=== PATIENT | male | born 1950 | race African-American/Black ===

== ENCOUNTER 2017-12-01 18:32 | Inpatient (IN) | payer OTHER ==
[2017-12-01] MEDS: ASPIRIN 81 MG TAB PO (19:25)
[2017-12-01] MEDS: NITROGLYCERIN 2% 1 GM OINT PKT TD (19:25)
[2017-12-01] MEDS: NITROGLYCERIN (SL) 0.4 MG TAB SL (19:25)
[2017-12-01] MEDS: ONDANSETRON 4 MG INJ IV (19:25)
[2017-12-01 19:26] LABS: ADD MAN DIFF? NO
[2017-12-01] MEDS: morphine 4 MG/ML VIAL IV ×2 (19:26→22:57)
[2017-12-01 19:27] LABS: BASOPHILS % 0.4 % (0.0-2.0); EOSINOPHILS % 0.8 % (0.0-7.0); HEMATOCRIT 38.4 % (42.0-52.0); HEMOGLOBIN 12.6 g/dl (14.0-18.0); LYMPHOCYTES # 0.6 10^3/ul (0.8-2.9); LYMPHOCYTES % 12.3 % (15.0-51.0); MEAN CORPUSCULAR HEMOGLOBIN 31.1 pg (29.0-33.0); MEAN CORPUSCULAR HGB CONC 32.8 g/dl (32.0-37.0); MEAN CORPUSCULAR VOLUME 94.8 fl (82.0-101.0); MEAN PLATELET VOLUME 11.2 fl (7.4-10.4); MONOCYTE # 0.4 10^3/ul (0.3-0.9); MONOCYTES % 6.7 % (0.0-11.0); NEUTROPHIL # 4.1 10^3/ul (1.6-7.5); NEUTROPHILS % 79.4 % (39.0-77.0); PLATELET COUNT 160 10^3/UL (140-415); RED BLOOD COUNT 4.05 10^6/ul (4.70-6.10); RED CELL DISTRIBUTION WIDTH 14.5 % (11.5-14.5)
[2017-12-01 19:27] LABS: WHITE BLOOD COUNT 5.2 10^3/ul (4.8-10.8)
[2017-12-01 19:51] LABS: ANION GAP 15 (8-16); BLOOD UREA NITROGEN 16 mg/dl (7-20); CARBON DIOXIDE 23 mmol/L (21-31); CHLORIDE 103 mmol/L (97-110); CREATININE 1.01 mg/dl (0.61-1.24); GLUCOSE 398 mg/dl (70-220); POTASSIUM 4.4 mmol/L (3.5-5.1); SODIUM 137 mmol/L (135-144)
[2017-12-01 20:03] LABS: TROPONIN-I 0.017 ng/ml (0.00-0.12)
[2017-12-01] MEDS: INSULIN LISPRO 100 UNIT/ML VIAL SC (20:36)
[2017-12-01] MEDS ORDERED: ACETAMINOPHEN 325 MG TAB PO (23:00)
[2017-12-01] MEDS ORDERED: NACL 0.9% 3 ML SYG IV (23:00)
[2017-12-01] MEDS ORDERED: DOCUSATE SODIUM 100 MG CAP PO (23:00)
[2017-12-01] MEDS: FAMOTIDINE 20 MG TAB PO (23:08)
[2017-12-01] MEDS ORDERED: DEXTROSE 50% 50 ML SYRINGE IV ×2 (23:15)
[2017-12-01] MEDS ORDERED: GLUCOSE GEL 15 GRAM TUBE PO ×2 (23:15)
[2017-12-01] MEDS ORDERED: GLUCOSE GEL 15 GRAM TUBE BUCCAL (23:15)
[2017-12-01] MEDS ORDERED: GLUCAGON 1 MG INJ IM (23:15)
[2017-12-01] MEDS: INSULIN GLARGINE [LANtus] 3 ML PEN SC (23:39)
[2017-12-02 02:01] LABS: CREATINE KINASE 164 IU/L (23-200)
[2017-12-02 02:15] LABS: CK INDEX 1.8
[2017-12-02 05:22] LABS: ADD MAN DIFF? NO
[2017-12-02 05:26] LABS: BASOPHILS % 0.4 % (0.0-2.0); EOSINOPHILS # 0.1 10^3/ul (0.0-0.5); EOSINOPHILS % 0.9 % (0.0-7.0); HEMATOCRIT 38.2 % (42.0-52.0); HEMOGLOBIN 12.3 g/dl (14.0-18.0); LYMPHOCYTES # 0.7 10^3/ul (0.8-2.9); LYMPHOCYTES % 13.4 % (15.0-51.0); MEAN CORPUSCULAR HGB CONC 32.2 g/dl (32.0-37.0); MEAN CORPUSCULAR VOLUME 96.2 fl (82.0-101.0); MEAN PLATELET VOLUME 11.6 fl (7.4-10.4); MONOCYTE # 0.4 10^3/ul (0.3-0.9); MONOCYTES % 7.5 % (0.0-11.0); NEUTROPHIL # 4.2 10^3/ul (1.6-7.5); NEUTROPHILS % 77.4 % (39.0-77.0); PLATELET COUNT 153 10^3/UL (140-415); RED BLOOD COUNT 3.97 10^6/ul (4.70-6.10); RED CELL DISTRIBUTION WIDTH 14.5 % (11.5-14.5)
[2017-12-02 05:26] LABS: WHITE BLOOD COUNT 5.5 10^3/ul (4.8-10.8)
[2017-12-02 06:18] LABS: ANION GAP 15 (8-16); BLOOD UREA NITROGEN 14 mg/dl (7-20); CALCIUM 8.9 mg/dl (8.4-10.2); CARBON DIOXIDE 25 mmol/L (21-31); CHLORIDE 104 mmol/L (97-110); CREATININE 0.91 mg/dl (0.61-1.24); GLUCOSE 286 mg/dl (70-220); POTASSIUM 4.7 mmol/L (3.5-5.1); SODIUM 139 mmol/L (135-144)
[2017-12-02 06:20] LABS: CREATINE KINASE 150 IU/L (23-200)
[2017-12-02 06:28] LABS: CK INDEX 1.7
[2017-12-02] MEDS: FAMOTIDINE 20 MG TAB PO ×2 (08:52→21:22)
[2017-12-02] MEDS: morphine 2 MG INJ IV (08:56)
[2017-12-02] MEDS: ENOXAPARIN 40 MG/0.4 ML SYG SC (09:03)
[2017-12-02 10:22] LABS: B-TYPE NATRIURETIC PEPTIDE 1800 PG/ML (0-125)
[2017-12-02] MEDS: INSULIN ASPART [NOVOLOG] 3 ML PEN SC ×2 (12:29→17:51)
[2017-12-02] MEDS ORDERED: FUROSEMIDE 20 MG INJ IV (17:04)
[2017-12-02] MEDS ORDERED: INSULIN ASPART [NOVOLOG] 3 ML PEN SC (17:05)
[2017-12-02] MEDS: traMADol 50 MG TAB PO (17:40)
[2017-12-02] MEDS: FUROSEMIDE 40 MG INJ IV (17:49)
[2017-12-02] MEDS: MYCOPHENOLATE 250 MG CAP PO ×2 (19:11→20:49)
[2017-12-02] MEDS: predniSONE 5 MG TAB PO (19:11)
[2017-12-02] MEDS: WARFARIN 2 MG TAB PO (19:11)
[2017-12-02] MEDS ORDERED: INSULIN GLARGINE [LANtus] 3 ML PEN SC (20:00)
[2017-12-02] MEDS: TACROLIMUS 0.5 MG CAP PO (20:48)
[2017-12-02] MEDS: LATANOPROST 0.005% 2.5 ML OPH BOTH EYES (20:49)
[2017-12-02] MEDS: TACROLIMUS 1 MG CAP PO (20:49)
[2017-12-02] MEDS: VALGANCICLOVIR 450 MG TAB PO (20:49)
[2017-12-02] MEDS: MAGNESIUM OXIDE 400 MG TAB PO (20:49)
[2017-12-02] MEDS: LABETALOL 100 MG TAB PO (20:52)
[2017-12-02] MEDS: INSULIN GLARGINE [LANtus] 3 ML PEN SC (20:54)
[2017-12-03] MEDS: traMADol 50 MG TAB PO ×2 (01:57→20:50)
[2017-12-03] MEDS: ONDANSETRON 4 MG TAB PO (03:43)
[2017-12-03] MEDS: PANTOPRAZOLE (EC) 40 MG TAB PO (06:00)
[2017-12-03] MEDS: DOXAZOSIN 4 MG TAB PO (09:36)
[2017-12-03] MEDS: TACROLIMUS 0.5 MG CAP PO ×2 (09:36→21:39)
[2017-12-03] MEDS: MYCOPHENOLATE 250 MG CAP PO ×2 (09:37→21:37)
[2017-12-03] MEDS: MAGNESIUM OXIDE 400 MG TAB PO ×3 (09:38→21:35)
[2017-12-03] MEDS: TACROLIMUS 1 MG CAP PO ×2 (09:39→21:44)
[2017-12-03] MEDS: MULTIVITAMINS THERAPEUTIC TAB PO (09:39)
[2017-12-03] MEDS: DILTIAZEM (CD) 120 MG CAP PO (09:40)
[2017-12-03] MEDS: predniSONE 5 MG TAB PO ×2 (09:41→09:56)
[2017-12-03] MEDS: INSULIN ASPART [NOVOLOG] 3 ML PEN SC ×3 (09:46→17:49)
[2017-12-03] MEDS: LABETALOL 100 MG TAB PO ×3 (09:55→21:36)
[2017-12-03] MEDS: FAMOTIDINE 20 MG TAB PO ×2 (09:55→21:54)
[2017-12-03 11:45] LABS: INR 1.69; PARTIAL THROMBOPLASTIN TIME 38.5 Sec (25.0-35.0); PROTIME 20.2 Sec (11.9-14.9); PT RATIO 1.6
[2017-12-03 11:46] LABS: ANION GAP 11 (8-16); BLOOD UREA NITROGEN 15 mg/dl (7-20); CALCIUM 9.5 mg/dl (8.4-10.2); CARBON DIOXIDE 30 mmol/L (21-31); CHLORIDE 99 mmol/L (97-110); CREATININE 0.94 mg/dl (0.61-1.24); GLUCOSE 184 mg/dl (70-220); MAGNESIUM 1.5 mg/dl (1.7-2.5); SODIUM 136 mmol/L (135-144)
[2017-12-03] MEDS ORDERED: WARFARIN 10 MG TAB PO ×2 (12:00→17:00)
[2017-12-03] MEDS: MAGNESIUM SULFATE 3 GM in DEXTROSE 5% 100 ML IVPB (15:27)
[2017-12-03] MEDS: WARFARIN 5 MG TAB PO (17:48)
[2017-12-03] MEDS: INSULIN GLARGINE [LANtus] 3 ML PEN SC (20:37)
[2017-12-03] MEDS: LATANOPROST 0.005% 2.5 ML OPH BOTH EYES (21:54)
[2017-12-04] MEDS: traMADol 50 MG TAB PO ×2 (03:42→10:26)
[2017-12-04] MEDS: ZOLPIDEM 5 MG TAB PO (03:43)
[2017-12-04 05:44] LABS: ANION GAP 14 (8-16); BLOOD UREA NITROGEN 19 mg/dl (7-20); CALCIUM 9.4 mg/dl (8.4-10.2); CARBON DIOXIDE 26 mmol/L (21-31); CHLORIDE 101 mmol/L (97-110); CREATININE 1.01 mg/dl (0.61-1.24); GLUCOSE 189 mg/dl (70-220); POTASSIUM 4.1 mmol/L (3.5-5.1); SODIUM 137 mmol/L (135-144)
[2017-12-04 05:51] LABS: MAGNESIUM 1.7 mg/dl (1.7-2.5)
[2017-12-04] MEDS: PANTOPRAZOLE (EC) 40 MG TAB PO (06:02)
[2017-12-04 06:04] LABS: INR 1.51; PROTIME 18.5 Sec (11.9-14.9); PT RATIO 1.4
[2017-12-04] MEDS: INSULIN ASPART [NOVOLOG] 3 ML PEN SC ×2 (07:47→12:21)
[2017-12-04] MEDS: DILTIAZEM (CD) 120 MG CAP PO (09:43)
[2017-12-04] MEDS: VALGANCICLOVIR 450 MG TAB PO (09:44)
[2017-12-04] MEDS: LABETALOL 100 MG TAB PO (09:44)
[2017-12-04] MEDS: MAGNESIUM OXIDE 400 MG TAB PO (09:44)
[2017-12-04] MEDS: predniSONE 5 MG TAB PO (09:44)
[2017-12-04] MEDS: DOXAZOSIN 4 MG TAB PO (09:45)
[2017-12-04] MEDS: FAMOTIDINE 20 MG TAB PO (09:45)
[2017-12-04] MEDS: MULTIVITAMINS THERAPEUTIC TAB PO (09:45)
[2017-12-04] MEDS: TACROLIMUS 1 MG CAP PO (09:47)
[2017-12-04] MEDS: MYCOPHENOLATE 250 MG CAP PO (09:47)
[2017-12-04] MEDS: TACROLIMUS 0.5 MG CAP PO (09:48)
[2017-12-05] MEDS ORDERED: WARFARIN 10 MG TAB PO (17:00)
[2017-12-05] MEDS ORDERED: WARFARIN 2.5 MG TAB PO ×2 (17:00)
[2017-12-05] MEDS ORDERED: WARFARIN 5 MG TAB PO (17:00)
[2017-12-08] MEDS ORDERED: WARFARIN 5 MG TAB PO (17:00)
[2017-12-08] MEDS ORDERED: WARFARIN 10 MG TAB PO (17:00)
[2017-12-09] MEDS ORDERED: WARFARIN 10 MG TAB PO (17:00)
[2017-12-09] MEDS ORDERED: WARFARIN 5 MG TAB PO (17:00)
== END 2017-12-04 13:57 | disposition home or self-care (01) | DRG 558 ==
LOC: MS3 22:02 → E/R 18:32
DX: M24.211 Disorder of ligament, right shoulder (principal); E11.21 Type 2 diabetes mellitus with diabetic nephropathy; Z94.0 Kidney transplant status; I48.92 Unspecified atrial flutter; I10 Essential (primary) hypertension; B18.2 Chronic viral hepatitis C; Z79.4 Long term (current) use of insulin; Z79.01 Long term (current) use of anticoagulants
CPT/HCPCS: 36415; 71045; 73030-RT; 73221; 80048; 82550; 82553; 82962; 83036; 83735; 83880; 84443; 84484; 85025; 85610; 85730; 93005; 93306; 96372; 96374; 96375; 96376; 99285-25; J1940

== ENCOUNTER 2018-01-30 13:04 | Emergency (ER) | payer OTHER ==
[2018-01-30] MEDS: morphine 4 MG/ML VIAL IV (17:00)
[2018-01-30] MEDS: ONDANSETRON 4 MG INJ IV (17:00)
[2018-01-30] MEDS: SODIUM CHLORIDE 0.9% 1L BAG IV* (17:01)
[2018-01-30 17:18] LABS: ADD MAN DIFF? NO
[2018-01-30 17:23] LABS: WHITE BLOOD COUNT 9.1 10^3/ul (4.8-10.8)
[2018-01-30 17:23] LABS: BASOPHILS % 0.3 % (0.0-2.0); EOSINOPHILS % 0.3 % (0.0-7.0); HEMATOCRIT 38.4 % (42.0-52.0); HEMOGLOBIN 12.5 g/dl (14.0-18.0); LYMPHOCYTES # 0.7 10^3/ul (0.8-2.9); LYMPHOCYTES % 7.7 % (15.0-51.0); MEAN CORPUSCULAR HEMOGLOBIN 30.3 pg (29.0-33.0); MEAN CORPUSCULAR HGB CONC 32.6 g/dl (32.0-37.0); MEAN CORPUSCULAR VOLUME 93.2 fl (82.0-101.0); MEAN PLATELET VOLUME 10.3 fl (7.4-10.4); MONOCYTE # 0.5 10^3/ul (0.3-0.9); MONOCYTES % 5.3 % (0.0-11.0); NEUTROPHIL # 7.9 10^3/ul (1.6-7.5); NEUTROPHILS % 86.1 % (39.0-77.0); PLATELET COUNT 251 10^3/UL (140-415); RED BLOOD COUNT 4.12 10^6/ul (4.70-6.10); RED CELL DISTRIBUTION WIDTH 14.7 % (11.5-14.5)
[2018-01-30 17:42] LABS: ALANINE AMINOTRANSFERASE 29 IU/L (13-69); ALKALINE PHOSPHATASE 95 IU/L (42-121); ANION GAP 17 (8-16); ASPARTATE AMINO TRANSFERASE 22 IU/L (15-46); BILIRUBIN,INDIRECT 0.5 mg/dl (0-1.1); BILIRUBIN,TOTAL 0.5 mg/dl (0.2-1.3); BLOOD UREA NITROGEN 18 mg/dl (7-20); CALCIUM 9.6 mg/dl (8.4-10.2); CARBON DIOXIDE 28 mmol/L (21-31); CHLORIDE 101 mmol/L (97-110); CREATININE 0.98 mg/dl (0.61-1.24); GLUCOSE 187 mg/dl (70-220); POTASSIUM 4.2 mmol/L (3.5-5.1); SODIUM 142 mmol/L (135-144)
[2018-01-30 17:43] LABS: ALBUMIN 3.8 g/dl (3.3-4.9); ALBUMIN/GLOBULIN RATIO 1.05; TOTAL PROTEIN 7.4 g/dl (6.1-8.1)
[2018-01-30 17:44] LABS: INR 5.46; PARTIAL THROMBOPLASTIN TIME 56.9 Sec (25.0-35.0); PROTIME 51.7 Sec (11.9-14.9)
[2018-01-30 17:47] LABS: LACTIC ACID 2.4 mmol/L (0.5-2.0)
[2018-01-30 17:55] LABS: TROPONIN-I < 0.012 ng/ml (0.00-0.12)
== END 2018-01-30 19:32 | disposition home or self-care (01) ==
LOC: E/R 13:04
DX: M25.551 Pain in right hip (principal); E11.9 Type 2 diabetes mellitus without complications; I10 Essential (primary) hypertension; I50.9 Heart failure, unspecified; Z79.84 Long term (current) use of oral hypoglycemic drugs
CPT/HCPCS: 71045; 74176; 80053; 83605; 84484; 85025; 85610; 85730; 87040; 93005; 96374; 96375; 99285-25

== ENCOUNTER 2018-03-03 17:42 | Inpatient (IN) | payer OTHER ==
[2018-03-03 19:03] LABS: ADD MAN DIFF? NO
[2018-03-03 19:11] LABS: WHITE BLOOD COUNT 5.9 10^3/ul (4.8-10.8)
[2018-03-03 19:11] LABS: BASOPHILS % 0.5 % (0.0-2.0); EOSINOPHILS % 0.7 % (0.0-7.0); HEMATOCRIT 37.7 % (42.0-52.0); HEMOGLOBIN 11.9 g/dl (14.0-18.0); LYMPHOCYTES # 0.7 10^3/ul (0.8-2.9); LYMPHOCYTES % 12.1 % (15.0-51.0); MEAN CORPUSCULAR HEMOGLOBIN 29.9 pg (29.0-33.0); MEAN CORPUSCULAR HGB CONC 31.6 g/dl (32.0-37.0); MEAN CORPUSCULAR VOLUME 94.7 fl (82.0-101.0); MEAN PLATELET VOLUME 10.6 fl (7.4-10.4); MONOCYTE # 0.4 10^3/ul (0.3-0.9); MONOCYTES % 6.5 % (0.0-11.0); NEUTROPHIL # 4.7 10^3/ul (1.6-7.5); NEUTROPHILS % 79.7 % (39.0-77.0); PLATELET COUNT 219 10^3/UL (140-415); RED BLOOD COUNT 3.98 10^6/ul (4.70-6.10); RED CELL DISTRIBUTION WIDTH 15.9 % (11.5-14.5)
[2018-03-03] MEDS: IPRATROPIUM (NEB) 0.5 MG/2.5 ML AMP INH (19:28)
[2018-03-03] MEDS: ALBUTEROL 0.083% (NEB) 2.5 MG/3 ML AMP INH (19:29)
[2018-03-03 19:31] LABS: INR 2.64; PARTIAL THROMBOPLASTIN TIME 42.8 Sec (25.0-35.0); PROTIME 28.9 Sec (11.9-14.9); PT RATIO 2.3
[2018-03-03 19:36] LABS: ALANINE AMINOTRANSFERASE 29 IU/L (13-69); ALBUMIN 3.9 g/dl (3.3-4.9); ALBUMIN/GLOBULIN RATIO 1.14; ALKALINE PHOSPHATASE 118 IU/L (42-121); ANION GAP 18 (8-16); ASPARTATE AMINO TRANSFERASE 24 IU/L (15-46); BILIRUBIN,INDIRECT 0.7 mg/dl (0-1.1); BILIRUBIN,TOTAL 0.7 mg/dl (0.2-1.3); BLOOD UREA NITROGEN 15 mg/dl (7-20); CALCIUM 9.5 mg/dl (8.4-10.2); CARBON DIOXIDE 23 mmol/L (21-31); CHLORIDE 107 mmol/L (97-110); CREATINE KINASE 198 IU/L (23-200); GLUCOSE 284 mg/dl (70-220); POTASSIUM 4.6 mmol/L (3.5-5.1); SODIUM 143 mmol/L (135-144); TOTAL PROTEIN 7.3 g/dl (6.1-8.1)
[2018-03-03 19:46] LABS: B-TYPE NATRIURETIC PEPTIDE 3320 PG/ML (0-125); CK INDEX 1.1
[2018-03-03 19:49] LABS: CK-MB 2.27 ng/ml (0.0-2.4); TROPONIN-I < 0.012 ng/ml (0.00-0.12)
[2018-03-03] MEDS: NITROGLYCERIN (SL) 0.4 MG TAB SL (21:38)
[2018-03-03] MEDS: FUROSEMIDE 40 MG INJ IV (21:38)
[2018-03-03] MEDS: INSULIN GLARGINE [LANtus] 3 ML PEN SC (23:08)
[2018-03-03] MEDS ORDERED: ONDANSETRON 4 MG INJ IV (23:30)
[2018-03-03] MEDS ORDERED: ACETAMINOPHEN 325 MG TAB PO (23:30)
[2018-03-04] MEDS ORDERED: MAGNESIUM HYDROXIDE 30ML CUP PO
[2018-03-04] MEDS ORDERED: morphine 2 MG INJ IV
[2018-03-04] MEDS ORDERED: BISACODYL 10 MG SUPP PR
[2018-03-04] MEDS ORDERED: NITROGLYCERIN (SL) 0.4 MG TAB SL
[2018-03-04] MEDS: ERGOCALCIFEROL 50,000 UNIT CAP PO
[2018-03-04] MEDS ORDERED: ONDANSETRON 4 MG INJ IV
[2018-03-04] MEDS ORDERED: ACETAMINOPHEN 325 MG TAB PO
[2018-03-04] MEDS ORDERED: DOCUSATE SODIUM 100 MG CAP PO
[2018-03-04] MEDS ORDERED: NACL 0.9% 3 ML SYG IV
[2018-03-04] MEDS ORDERED: GLUCAGON 1 MG INJ IM (01:30)
[2018-03-04] MEDS ORDERED: GLUCOSE GEL 15 GRAM TUBE BUCCAL (01:30)
[2018-03-04] MEDS ORDERED: GLUCOSE GEL 15 GRAM TUBE PO ×2 (01:30)
[2018-03-04] MEDS ORDERED: DEXTROSE 50% 50 ML SYRINGE IV ×2 (01:30)
[2018-03-04] MEDS: ACCU-CHEK XX (02:00)
[2018-03-04 02:47] LABS: CREATINE KINASE 137 IU/L (23-200)
[2018-03-04 03:00] LABS: CK INDEX 1.2; TROPONIN-I 0.015 ng/ml (0.00-0.12)
[2018-03-04 03:02] LABS: CK-MB 1.65 ng/ml (0.0-2.4)
[2018-03-04 06:01] LABS: ADD MAN DIFF? NO
[2018-03-04 06:12] LABS: BASOPHILS % 0.6 % (0.0-2.0); EOSINOPHILS # 0.1 10^3/ul (0.0-0.5); EOSINOPHILS % 1.4 % (0.0-7.0); HEMATOCRIT 37.1 % (42.0-52.0); HEMOGLOBIN 11.7 g/dl (14.0-18.0); LYMPHOCYTES # 0.9 10^3/ul (0.8-2.9); LYMPHOCYTES % 18.4 % (15.0-51.0); MEAN CORPUSCULAR HEMOGLOBIN 29.6 pg (29.0-33.0); MEAN CORPUSCULAR HGB CONC 31.5 g/dl (32.0-37.0); MEAN CORPUSCULAR VOLUME 93.9 fl (82.0-101.0); MEAN PLATELET VOLUME 10.8 fl (7.4-10.4); MONOCYTE # 0.3 10^3/ul (0.3-0.9); MONOCYTES % 6.6 % (0.0-11.0); NEUTROPHIL # 3.6 10^3/ul (1.6-7.5); NEUTROPHILS % 72.6 % (39.0-77.0); PLATELET COUNT 239 10^3/UL (140-415); RED BLOOD COUNT 3.95 10^6/ul (4.70-6.10); RED CELL DISTRIBUTION WIDTH 15.9 % (11.5-14.5)
[2018-03-04] MEDS: PANTOPRAZOLE (EC) 40 MG TAB PO ×2 (06:23→07:35)
[2018-03-04 06:29] LABS: INR 2.51; PROTIME 27.8 Sec (11.9-14.9); PT RATIO 2.2
[2018-03-04 06:30] LABS: PARTIAL THROMBOPLASTIN TIME 44.4 Sec (25.0-35.0)
[2018-03-04 06:38] LABS: ALANINE AMINOTRANSFERASE 28 IU/L (13-69); ALBUMIN 3.4 g/dl (3.3-4.9); ALBUMIN/GLOBULIN RATIO 1.03; ALKALINE PHOSPHATASE 107 IU/L (42-121); ANION GAP 16 (8-16); ASPARTATE AMINO TRANSFERASE 19 IU/L (15-46); BILIRUBIN,INDIRECT 0.7 mg/dl (0-1.1); BILIRUBIN,TOTAL 0.7 mg/dl (0.2-1.3); BLOOD UREA NITROGEN 14 mg/dl (7-20); CALCIUM 9.4 mg/dl (8.4-10.2); CARBON DIOXIDE 28 mmol/L (21-31); CHLORIDE 104 mmol/L (97-110); CHOL/HDL RATIO 2.7 RATIO; CHOLESTEROL 96 mg/dl (100-200); CREATININE 0.83 mg/dl (0.61-1.24); GLUCOSE 235 mg/dl (70-220); HDL CHOLESTEROL 35 mg/dl (30-78); LDL CHOLESTEROL,CALCULATED 41 mg/dl; MAGNESIUM 1.3 mg/dl (1.7-2.5); POTASSIUM 3.7 mmol/L (3.5-5.1); SODIUM 144 mmol/L (135-144); TOTAL PROTEIN 6.7 g/dl (6.1-8.1); TRIGLYCERIDES 98 mg/dl (0-149)
[2018-03-04 06:42] LABS: HEMOGLOBIN A1C 9.2 % (0-5.9)
[2018-03-04 06:54] LABS: FREE T4 (FREE THYROXINE) 1.16 ng/dl (0.78-2.44)
[2018-03-04] MEDS: INSULIN ASPART [NOVOLOG] 3 ML PEN SC ×4 (07:41→11:52)
[2018-03-04] MEDS: DOXAZOSIN 4 MG TAB PO (08:09)
[2018-03-04] MEDS: TACROLIMUS 1 MG CAP PO (08:09)
[2018-03-04] MEDS: TACROLIMUS 0.5 MG CAP PO (08:09)
[2018-03-04] MEDS: SOD PHOS MONO/DIBAS 250 MG TAB PO ×2 (08:10→12:52)
[2018-03-04] MEDS: predniSONE 5 MG TAB PO (08:10)
[2018-03-04] MEDS: MAGNESIUM OXIDE 400 MG TAB PO ×2 (08:10→12:52)
[2018-03-04] MEDS: MULTIVITAMINS THERAPEUTIC TAB PO (08:11)
[2018-03-04] MEDS: MYCOPHENOLATE 250 MG CAP PO (08:11)
[2018-03-04] MEDS: DILTIAZEM (CD) 120 MG CAP PO (08:12)
[2018-03-04] MEDS: LABETALOL 200 MG TAB PO ×2 (08:12→12:52)
[2018-03-04] MEDS: FUROSEMIDE 40 MG INJ IV (08:12)
[2018-03-04 08:22] LABS: CREATINE KINASE 111 IU/L (23-200)
[2018-03-04 08:33] LABS: CK INDEX 1.3; TROPONIN-I 0.016 ng/ml (0.00-0.12)
[2018-03-04] MEDS ORDERED: FUROSEMIDE 40 MG TAB PO (09:00)
[2018-03-04] MEDS ORDERED: MYCOPHENOLATE 250 MG CAP PO ×2 (09:00→21:00)
[2018-03-04] MEDS: VALGANCICLOVIR 450 MG TAB PO (09:48)
[2018-03-04 10:58] LABS: ADD UMIC NO; UR ASCORBIC ACID NEGATIVE (NEGATIVE); UR BILIRUBIN (Dip) NEGATIVE (NEGATIVE); UR BLOOD (Dip) NEGATIVE (NEGATIVE); UR CLARITY CLEAR (CLEAR); UR COLOR STRAW (YELLOW); UR GLUCOSE (Dip) NEGATIVE (NEGATIVE); UR KETONES (Dip) NEGATIVE (NEGATIVE); UR LEUKOCYTE ESTERASE (Dip) NEGATIVE Leu/ul (NEGATIVE); UR NITRITE (Dip) NEGATIVE (NEGATIVE); UR SPECIFIC GRAVITY (Dip) 1.008 (1.003-1.030); UR TOTAL PROTEIN (Dip) NEGATIVE (NEGATIVE); UR UROBILINOGEN (Dip) NEGATIVE (NEGATIVE)
[2018-03-04] MEDS ORDERED: WARFARIN 10 MG TAB PO (17:00)
[2018-03-04] MEDS ORDERED: INSULIN GLARGINE [LANtus] 3 ML PEN SC ×2 (21:00)
[2018-03-04] MEDS ORDERED: LATANOPROST 0.005% 2.5 ML OPH BOTH EYES (21:00)
== END 2018-03-04 15:55 | disposition home or self-care (01) | DRG 292 ==
LOC: TEL 23:30 → E/R 17:42
DX: I11.0 Hypertensive heart disease with heart failure (principal); I48.92 Unspecified atrial flutter; Z94.0 Kidney transplant status; E11.65 Type 2 diabetes mellitus with hyperglycemia; I48.2 Chronic atrial fibrillation; Z79.01 Long term (current) use of anticoagulants; I50.33 Acute on chronic diastolic (congestive) heart failure; Z79.4 Long term (current) use of insulin
CPT/HCPCS: 71045; 80053; 80061; 81003; 82550; 82553; 82962; 83036; 83735; 83880; 84439; 84443; 84484; 85025; 85610; 85730; 87040; 87086; 93005; 94664; 96372; 96374; 99291-25

== ENCOUNTER 2018-12-02 13:17 | Observation (INO) | payer OTHER ==
[2018-12-02] MEDS: NITROGLYCERIN 2% 1 GM OINT PKT TD (14:10)
[2018-12-02] MEDS: FUROSEMIDE 40 MG INJ IV ×2 (14:10→18:00)
[2018-12-02 14:41] LABS: ADD MAN DIFF? NO
[2018-12-02 14:48] LABS: WHITE BLOOD COUNT 5.3 10^3/ul (4.8-10.8)
[2018-12-02 14:48] LABS: BASOPHILS % 0.4 % (0.0-2.0); EOSINOPHILS # 0.1 10^3/ul (0.0-0.5); EOSINOPHILS % 1.1 % (0.0-7.0); HEMATOCRIT 46.8 % (42.0-52.0); HEMOGLOBIN 14.4 g/dl (14.0-18.0); LYMPHOCYTES # 1.2 10^3/ul (0.8-2.9); LYMPHOCYTES % 22.9 % (15.0-51.0); MEAN CORPUSCULAR HEMOGLOBIN 29.8 pg (29.0-33.0); MEAN CORPUSCULAR HGB CONC 30.8 g/dl (32.0-37.0); MEAN CORPUSCULAR VOLUME 96.9 fl (82.0-101.0); MEAN PLATELET VOLUME 10.4 fl (7.4-10.4); MONOCYTE # 0.4 10^3/ul (0.3-0.9); MONOCYTES % 6.6 % (0.0-11.0); NEUTROPHIL # 3.6 10^3/ul (1.6-7.5); NEUTROPHILS % 68.8 % (39.0-77.0); PLATELET COUNT 157 10^3/UL (140-415); RED BLOOD COUNT 4.83 10^6/ul (4.70-6.10); RED CELL DISTRIBUTION WIDTH 13.4 % (11.5-14.5)
[2018-12-02] MEDS: CEFEPIME 1GM/50 ML (PMX) 50 ML IVPB (14:49)
[2018-12-02 15:01] LABS: ANION GAP 8 (5-13); BLOOD UREA NITROGEN 10 mg/dl (7-20); CALCIUM 9.6 mg/dl (8.4-10.2); CARBON DIOXIDE 28 mmol/L (21-31); CHLORIDE 108 mmol/L (97-110); Estimated GFR > 60 mL/min (>60); GLUCOSE 97 mg/dl (70-220); POTASSIUM 4.3 mmol/L (3.5-5.1); SODIUM 144 mmol/L (135-144)
[2018-12-02 15:13] LABS: TROPONIN-I 0.028 ng/ml (0.000-0.120)
[2018-12-02] MEDS: VANCOMYCIN 1 GM (PMX) 250 ML IVPB (15:37)
[2018-12-02 16:35] LABS: INR 0.99; PROTIME 13.2 Sec (11.9-14.9)
[2018-12-02] MEDS ORDERED: ACETAMINOPHEN 325 MG TAB PO ×2 (17:00→18:00)
[2018-12-02] MEDS ORDERED: ONDANSETRON 4 MG INJ IV ×2 (17:00→18:00)
[2018-12-02 17:26] LABS: ADD UMIC YES; UR ASCORBIC ACID NEGATIVE (NEGATIVE); UR BACTERIA FEW /HPF (NONE SEEN); UR BILIRUBIN (Dip) NEGATIVE (NEGATIVE); UR BLOOD (Dip) NEGATIVE (NEGATIVE); UR CLARITY CLEAR (CLEAR); UR COLOR STRAW (YELLOW); UR GLUCOSE (Dip) NEGATIVE (NEGATIVE); UR KETONES (Dip) NEGATIVE (NEGATIVE); UR LEUKOCYTE ESTERASE (Dip) NEGATIVE Leu/ul (NEGATIVE); UR MUCUS FEW /HPF (NONE SEEN); UR NITRITE (Dip) NEGATIVE (NEGATIVE); UR RBC 0 /HPF (0-5); UR SPECIFIC GRAVITY (Dip) 1.006 (1.003-1.030); UR TOTAL PROTEIN (Dip) 1+ mg/dl (NEGATIVE); UR UROBILINOGEN (Dip) NEGATIVE (NEGATIVE); UR WBC 1 /HPF (0-5)
[2018-12-02] MEDS ORDERED: DOCUSATE SODIUM 100 MG CAP PO (18:00)
[2018-12-02] MEDS ORDERED: NACL 0.9% 3 ML SYG IV (18:00)
[2018-12-02] MEDS ORDERED: ZOLPIDEM 5 MG TAB PO (18:00)
[2018-12-02] MEDS ORDERED: ACETAMINOPHEN 500 MG TAB PO (18:30)
[2018-12-02] MEDS ORDERED: ENOXAPARIN 40 MG/0.4 ML SYG SC (20:00)
[2018-12-02 20:06] LABS: CREATINE KINASE 291 IU/L (23-200)
[2018-12-02 20:08] LABS: LACTIC ACID 1.7 mmol/L (0.5-2.0)
[2018-12-02] MEDS: MAGNESIUM OXIDE 400 MG TAB PO (20:14)
[2018-12-02] MEDS: DOXAZOSIN 4 MG TAB PO (20:14)
[2018-12-02 20:15] LABS: CK INDEX 1.1
[2018-12-02 20:19] LABS: TROPONIN-I 0.037 ng/ml (0.000-0.120)
[2018-12-02] MEDS: MYCOPHENOLATE 250 MG CAP PO (20:32)
[2018-12-02] MEDS: LATANOPROST 0.005% 2.5 ML OPH BOTH EYES (20:32)
[2018-12-02] MEDS: INSULIN GLARGINE [LANTus] (100 UNITS/ML) SYG SC (20:44)
[2018-12-03 01:37] LABS: CREATINE KINASE 186 IU/L (23-200)
[2018-12-03 01:49] LABS: CK INDEX 1.2; CK-MB 2.21 ng/ml (0.0-2.4); TROPONIN-I 0.042 ng/ml (0.000-0.120)
[2018-12-03 05:38] LABS: ADD MAN DIFF? NO
[2018-12-03 05:41] LABS: WHITE BLOOD COUNT 5.4 10^3/ul (4.8-10.8)
[2018-12-03 05:41] LABS: BASOPHILS % 0.4 % (0.0-2.0); EOSINOPHILS # 0.1 10^3/ul (0.0-0.5); EOSINOPHILS % 1.1 % (0.0-7.0); LYMPHOCYTES # 0.7 10^3/ul (0.8-2.9); LYMPHOCYTES % 13.8 % (15.0-51.0); MEAN CORPUSCULAR HEMOGLOBIN 29.8 pg (29.0-33.0); MEAN CORPUSCULAR VOLUME 96.3 fl (82.0-101.0); MEAN PLATELET VOLUME 10.7 fl (7.4-10.4); MONOCYTE # 0.5 10^3/ul (0.3-0.9); MONOCYTES % 8.4 % (0.0-11.0); NEUTROPHIL # 4.1 10^3/ul (1.6-7.5); NEUTROPHILS % 75.9 % (39.0-77.0); PLATELET COUNT 166 10^3/UL (140-415); RED BLOOD COUNT 4.36 10^6/ul (4.70-6.10); RED CELL DISTRIBUTION WIDTH 13.5 % (11.5-14.5)
[2018-12-03] MEDS: PANTOPRAZOLE (EC) 40 MG TAB PO (05:48)
[2018-12-03 05:54] LABS: HEMOGLOBIN A1C 10.5 % (0-5.9)
[2018-12-03 06:06] LABS: ANION GAP 6 (5-13); BLOOD UREA NITROGEN 12 mg/dl (7-20); CALCIUM 9.1 mg/dl (8.4-10.2); CARBON DIOXIDE 25 mmol/L (21-31); CHLORIDE 109 mmol/L (97-110); CREATININE 0.85 mg/dl (0.61-1.24); Estimated GFR > 60 mL/min (>60); GLUCOSE 152 mg/dl (70-220); POTASSIUM 3.5 mmol/L (3.5-5.1); SODIUM 140 mmol/L (135-144)
[2018-12-03] MEDS: CEFTRIAXONE 1 GM/NS 50 ML IVPB (08:49)
[2018-12-03] MEDS: INSULIN ASPART [NOVOLOG] 3 ML PEN SC ×5 (08:49→17:20)
[2018-12-03] MEDS: MAGNESIUM OXIDE 400 MG TAB PO ×2 (08:52→22:40)
[2018-12-03] MEDS: DILTIAZEM (CD) 180 MG CAP PO (08:53)
[2018-12-03] MEDS: MYCOPHENOLATE 250 MG CAP PO ×2 (08:54→22:40)
[2018-12-03] MEDS: SOD PHOS MONO/DIBAS 250 MG TAB PO (08:55)
[2018-12-03] MEDS: predniSONE 10 MG TAB PO (08:55)
[2018-12-03] MEDS: AZITHROMYCIN 250 MG TAB PO (08:55)
[2018-12-03] MEDS: LOSARTAN 50 MG TAB PO (08:56)
[2018-12-03] MEDS ORDERED: NON-FORMULARY/PATIENT OWN MED (Umeclidinium Brm-Vilanterol Tr (Anoro Ellipta) 1 EACH) INHALATION (09:00)
[2018-12-03] MEDS ORDERED: CEFTRIAXONE 1 GM INJ IM (09:00)
[2018-12-03] MEDS ORDERED: TACROLIMUS 4 MG PO (09:00)
[2018-12-03] MEDS: [UNRECOGNIZED DRUG - OTHER] XX ×2 (11:00→17:30)
[2018-12-03] MEDS: TACROLIMUS XX ×2 (11:00→17:30)
[2018-12-03] MEDS: APIXABAN 5 MG TABLET PO ×2 (11:15→22:42)
[2018-12-03] MEDS: MULTIVITAMINS THERAPEUTIC TAB PO (11:15)
[2018-12-03] MEDS: DEXTROSE 50% 50 ML SYRINGE IV (11:16)
[2018-12-03] MEDS: BUMETANIDE 1 MG TAB PO (11:18)
[2018-12-03] MEDS ORDERED: GLUCAGON 1 MG INJ IM (11:30)
[2018-12-03] MEDS ORDERED: GLUCOSE GEL 15 GRAM TUBE BUCCAL (11:30)
[2018-12-03] MEDS ORDERED: GLUCOSE GEL 15 GRAM TUBE PO ×2 (11:30)
[2018-12-03] MEDS ORDERED: DEXTROSE 50% 50 ML SYRINGE IV ×2 (11:30)
[2018-12-03 11:44] LABS: ANION GAP 9 (5-13); BLOOD UREA NITROGEN 12 mg/dl (7-20); CALCIUM 9.5 mg/dl (8.4-10.2); CARBON DIOXIDE 29 mmol/L (21-31); CHLORIDE 108 mmol/L (97-110); CREATININE 0.79 mg/dl (0.61-1.24); Estimated GFR > 60 mL/min (>60); PHOSPHORUS 3.3 mg/dl (2.5-4.9); POTASSIUM 3.5 mmol/L (3.5-5.1); SODIUM 146 mmol/L (135-144)
[2018-12-03 11:47] LABS: GLUCOSE 44 mg/dl (70-220)
[2018-12-03] MEDS: LATANOPROST 0.005% 2.5 ML OPH BOTH EYES (22:36)
[2018-12-03] MEDS: INSULIN GLARGINE [LANTus] (100 UNITS/ML) SYG SC (22:40)
[2018-12-03] MEDS: DOXAZOSIN 4 MG TAB PO (22:42)
[2018-12-04] MEDS: INSULIN ASPART [NOVOLOG] 3 ML PEN SC ×5 (00:16→11:25)
[2018-12-04] MEDS: ACCU-CHEK XX (02:00)
[2018-12-04] MEDS: TACROLIMUS XX ×2 (03:00→10:55)
[2018-12-04] MEDS: [UNRECOGNIZED DRUG - OTHER] XX ×2 (03:00→10:55)
[2018-12-04 05:57] LABS: ADD MAN DIFF? NO
[2018-12-04 05:59] LABS: WHITE BLOOD COUNT 3.9 10^3/ul (4.8-10.8)
[2018-12-04 05:59] LABS: BASOPHILS % 0.8 % (0.0-2.0); EOSINOPHILS # 0.1 10^3/ul (0.0-0.5); EOSINOPHILS % 1.3 % (0.0-7.0); HEMATOCRIT 42.6 % (42.0-52.0); HEMOGLOBIN 13.5 g/dl (14.0-18.0); LYMPHOCYTES # 1.1 10^3/ul (0.8-2.9); LYMPHOCYTES % 28.3 % (15.0-51.0); MEAN CORPUSCULAR HEMOGLOBIN 30.1 pg (29.0-33.0); MEAN CORPUSCULAR HGB CONC 31.7 g/dl (32.0-37.0); MEAN CORPUSCULAR VOLUME 95.1 fl (82.0-101.0); MEAN PLATELET VOLUME 10.8 fl (7.4-10.4); MONOCYTE # 0.3 10^3/ul (0.3-0.9); MONOCYTES % 8.4 % (0.0-11.0); NEUTROPHIL # 2.4 10^3/ul (1.6-7.5); NEUTROPHILS % 60.9 % (39.0-77.0); PLATELET COUNT 161 10^3/UL (140-415); RED BLOOD COUNT 4.48 10^6/ul (4.70-6.10); RED CELL DISTRIBUTION WIDTH 13.7 % (11.5-14.5)
[2018-12-04] MEDS: BUMETANIDE 1 MG TAB PO (06:05)
[2018-12-04] MEDS: PANTOPRAZOLE (EC) 40 MG TAB PO (06:05)
[2018-12-04 06:44] LABS: ANION GAP 11 (5-13); BLOOD UREA NITROGEN 13 mg/dl (7-20); CALCIUM 9.3 mg/dl (8.4-10.2); CARBON DIOXIDE 26 mmol/L (21-31); CHLORIDE 105 mmol/L (97-110); CREATININE 0.78 mg/dl (0.61-1.24); Estimated GFR > 60 mL/min (>60); GLUCOSE 229 mg/dl (70-220); POTASSIUM 4.3 mmol/L (3.5-5.1); SODIUM 142 mmol/L (135-144)
[2018-12-04 06:46] LABS: MAGNESIUM 1.9 mg/dl (1.7-2.5)
[2018-12-04] MEDS: MULTIVITAMINS THERAPEUTIC TAB PO (08:38)
[2018-12-04] MEDS: CEFTRIAXONE 1 GM/NS 50 ML IVPB (08:38)
[2018-12-04] MEDS: MYCOPHENOLATE 250 MG CAP PO (08:39)
[2018-12-04] MEDS: AZITHROMYCIN 250 MG TAB PO (08:39)
[2018-12-04] MEDS: APIXABAN 5 MG TABLET PO (08:40)
[2018-12-04] MEDS: MAGNESIUM OXIDE 400 MG TAB PO (08:40)
[2018-12-04] MEDS: LOSARTAN 50 MG TAB PO (08:41)
[2018-12-04] MEDS: DILTIAZEM (CD) 180 MG CAP PO (08:42)
[2018-12-04] MEDS: predniSONE 10 MG TAB PO (08:45)
[2018-12-04] MEDS: SOD PHOS MONO/DIBAS 250 MG TAB PO (10:04)
[2018-12-04] MEDS: MAGNESIUM SULFATE 1 GM/D5W 100 ML IVPB (12:10)
== END 2018-12-04 14:12 | disposition home health service (06) ==
LOC: E/R 13:17 → 6WM 16:46
DX: R06.89 Other abnormalities of breathing (principal); R06.02 Shortness of breath; I48.91 Unspecified atrial fibrillation; I48.92 Unspecified atrial flutter; J18.9 Pneumonia, unspecified organism; I11.0 Hypertensive heart disease with heart failure; I50.30 Unspecified diastolic (congestive) heart failure; E11.649 Type 2 diabetes mellitus with hypoglycemia without coma; Z94.0 Kidney transplant status; Z79.4 Long term (current) use of insulin; Z79.01 Long term (current) use of anticoagulants
CPT/HCPCS: 71045; 71046; 80048; 81001; 82550; 82553; 82962; 83036; 83605; 83735; 84100; 84484; 85025; 85610; 87040; 87086; 93005; 93306; 93971; 96374; 96375; 97116; 97161; 97530; 99285-25; G0378

== ENCOUNTER 2018-12-13 00:12 | Inpatient (IN) | payer OTHER ==
[2018-12-13] MEDS: ALBUTEROL 0.083% (NEB) 2.5 MG/3 ML AMP INH (00:29)
[2018-12-13] MEDS: IPRATROPIUM (NEB) 0.5 MG/2.5 ML AMP INH (00:30)
[2018-12-13 00:36] LABS: MODE MASK - NRB; MetHgb Venous 0.1 %; Sample Type Blood venous; Site VENOUS LINE; Venous COHb 1.6 %; Venous Fraction OxyHgb 82.8 %; Venous Oxygen Sat 84.2 mmHG (55.0-75.0); Venous Total Hemglobin 13.5 g/dl
[2018-12-13 00:42] LABS: ADD MAN DIFF? NO
[2018-12-13 00:43] LABS: WHITE BLOOD COUNT 5.1 10^3/ul (4.8-10.8)
[2018-12-13 00:43] LABS: BASOPHILS % 0.4 % (0.0-2.0); EOSINOPHILS % 0.6 % (0.0-7.0); HEMATOCRIT 39.4 % (42.0-52.0); HEMOGLOBIN 12.3 g/dl (14.0-18.0); LYMPHOCYTES # 0.8 10^3/ul (0.8-2.9); LYMPHOCYTES % 15.8 % (15.0-51.0); MEAN CORPUSCULAR HEMOGLOBIN 29.9 pg (29.0-33.0); MEAN CORPUSCULAR HGB CONC 31.2 g/dl (32.0-37.0); MEAN CORPUSCULAR VOLUME 95.6 fl (82.0-101.0); MEAN PLATELET VOLUME 10.9 fl (7.4-10.4); MONOCYTE # 0.4 10^3/ul (0.3-0.9); NEUTROPHIL # 3.8 10^3/ul (1.6-7.5); PLATELET COUNT 153 10^3/UL (140-415); RED BLOOD COUNT 4.12 10^6/ul (4.70-6.10); RED CELL DISTRIBUTION WIDTH 13.8 % (11.5-14.5)
[2018-12-13 01:11] LABS: ALANINE AMINOTRANSFERASE 29 IU/L (13-69); ALBUMIN/GLOBULIN RATIO 1.21; ALKALINE PHOSPHATASE 94 IU/L (42-121); ANION GAP 13 (5-13); ASPARTATE AMINO TRANSFERASE 23 IU/L (15-46); BILIRUBIN,INDIRECT 0.6 mg/dl (0-1.1); BILIRUBIN,TOTAL 0.6 mg/dl (0.2-1.3); BLOOD UREA NITROGEN 23 mg/dl (7-20); CALCIUM 9.4 mg/dl (8.4-10.2); CARBON DIOXIDE 26 mmol/L (21-31); CHLORIDE 102 mmol/L (97-110); CREATININE 1.24 mg/dl (0.61-1.24); Estimated GFR > 60 mL/min (>60); GLUCOSE 384 mg/dl (70-220); POTASSIUM 4.4 mmol/L (3.5-5.1); SODIUM 141 mmol/L (135-144); TOTAL PROTEIN 7.3 g/dl (6.1-8.1)
[2018-12-13 01:24] LABS: B-TYPE NATRIURETIC PEPTIDE 838 PG/ML (0-125); TROPONIN-I 0.024 ng/ml (0.000-0.120)
[2018-12-13] MEDS: NITROGLYCERIN (SL) 0.4 MG TAB SL (01:27)
[2018-12-13] MEDS: BUMETANIDE 1 MG INJ IV ×4 (01:33→17:30)
[2018-12-13] MEDS ORDERED: ONDANSETRON 4 MG INJ IV ×2 (02:30→05:30)
[2018-12-13] MEDS ORDERED: ACETAMINOPHEN 325 MG TAB PO ×2 (02:30→05:30)
[2018-12-13] MEDS: hydrALAzine 20 MG INJ IV (05:51)
[2018-12-13 05:59] LABS: ADD MAN DIFF? NO
[2018-12-13] MEDS ORDERED: GLUCAGON 1 MG INJ IM (06:00)
[2018-12-13] MEDS ORDERED: DEXTROSE 50% 50 ML SYRINGE IV ×2 (06:00)
[2018-12-13] MEDS ORDERED: GLUCOSE GEL 15 GRAM TUBE BUCCAL (06:00)
[2018-12-13] MEDS ORDERED: GLUCOSE GEL 15 GRAM TUBE PO ×2 (06:00)
[2018-12-13 06:09] LABS: WHITE BLOOD COUNT 5.7 10^3/ul (4.8-10.8)
[2018-12-13 06:09] LABS: BASOPHILS % 0.4 % (0.0-2.0); EOSINOPHILS % 0.4 % (0.0-7.0); HEMATOCRIT 38.8 % (42.0-52.0); HEMOGLOBIN 12.4 g/dl (14.0-18.0); LYMPHOCYTES # 0.8 10^3/ul (0.8-2.9); LYMPHOCYTES % 14.6 % (15.0-51.0); MEAN CORPUSCULAR VOLUME 93.7 fl (82.0-101.0); MEAN PLATELET VOLUME 11.6 fl (7.4-10.4); MONOCYTE # 0.5 10^3/ul (0.3-0.9); NEUTROPHIL # 4.3 10^3/ul (1.6-7.5); NEUTROPHILS % 75.2 % (39.0-77.0); NUCLEATED RED BLOOD CELLS% 0.4 /100WBC (0.0-0.0); PLATELET COUNT 132 10^3/UL (140-415); POSITIVE DIFF @See below; RED BLOOD COUNT 4.14 10^6/ul (4.70-6.10); RED CELL DISTRIBUTION WIDTH 13.9 % (11.5-14.5)
[2018-12-13 06:32] LABS: LACTIC ACID 1.5 mmol/L (0.5-2.0)
[2018-12-13 06:57] LABS: ANION GAP 13 (5-13); BLOOD UREA NITROGEN 21 mg/dl (7-20); CALCIUM 9.5 mg/dl (8.4-10.2); CARBON DIOXIDE 22 mmol/L (21-31); CHLORIDE 106 mmol/L (97-110); CHOL/HDL RATIO 2.5 RATIO; CHOLESTEROL 96 mg/dl (100-200); CREATININE 1.06 mg/dl (0.61-1.24); Estimated GFR > 60 mL/min (>60); GLUCOSE 392 mg/dl (70-220); HDL CHOLESTEROL 38 mg/dl (31-75); LDL CHOLESTEROL,CALCULATED 45 mg/dl; POTASSIUM 4.2 mmol/L (3.5-5.1); SODIUM 141 mmol/L (135-144); TRIGLYCERIDES 67 mg/dl (0-149)
[2018-12-13 07:06] LABS: B-TYPE NATRIURETIC PEPTIDE 1310 PG/ML (0-125)
[2018-12-13] MEDS: INSULIN ASPART [NOVOLOG] 3 ML PEN SC ×6 (07:59→20:30)
[2018-12-13 08:26] LABS: HEMOGLOBIN A1C 10.7 % (0-5.9)
[2018-12-13] MEDS ORDERED: ACETAMINOPHEN 500 MG TAB PO (08:30)
[2018-12-13] MEDS ORDERED: TACROLIMUS 4 MG PO (09:00)
[2018-12-13] MEDS ORDERED: NON-FORMULARY/PATIENT OWN MED (Umeclidinium Brm-Vilanterol Tr (Anoro Ellipta) 1 EACH) INHALATION (09:00)
[2018-12-13] MEDS: [UNRECOGNIZED DRUG - OTHER] XX ×2 (10:37→18:10)
[2018-12-13] MEDS: ENVARSUS XX ×2 (10:37→18:10)
[2018-12-13] MEDS: LOSARTAN 50 MG TAB PO (10:45)
[2018-12-13] MEDS: DILTIAZEM (CD) 180 MG CAP PO (10:45)
[2018-12-13] MEDS: DOXAZOSIN 4 MG TAB PO (10:46)
[2018-12-13] MEDS: predniSONE 10 MG TAB PO (10:46)
[2018-12-13] MEDS: POTASSIUM CHLORIDE (SR) 20 MEQ TAB PO (10:47)
[2018-12-13] MEDS ORDERED: INSULIN LISPRO 100 UNIT/ML VIAL SC (11:30)
[2018-12-13] MEDS ORDERED: INSULIN GLARGINE [LANTus] (100 UNITS/ML) SYG SC (20:00)
[2018-12-13] MEDS: TAMSULOSIN (SR) 0.4 MG CAP PO (20:13)
[2018-12-13] MEDS: INSULIN GLARGINE [LANTus] (100 UNITS/ML) SYG SC (20:30)
[2018-12-13] MEDS: LATANOPROST 0.005% 2.5 ML OPH BOTH EYES (20:44)
[2018-12-14] MEDS: ENVARSUS XX (03:00)
[2018-12-14] MEDS: [UNRECOGNIZED DRUG - OTHER] XX (03:00)
[2018-12-14] MEDS: BUMETANIDE 1 MG INJ IV (05:25)
[2018-12-14 06:33] LABS: ANION GAP 12 (5-13); BLOOD UREA NITROGEN 19 mg/dl (7-20); CALCIUM 9.6 mg/dl (8.4-10.2); CARBON DIOXIDE 29 mmol/L (21-31); CHLORIDE 102 mmol/L (97-110); CREATININE 0.94 mg/dl (0.61-1.24); Estimated GFR > 60 mL/min (>60); GLUCOSE 248 mg/dl (70-220); POTASSIUM 3.9 mmol/L (3.5-5.1); SODIUM 143 mmol/L (135-144)
[2018-12-14] MEDS: INSULIN ASPART [NOVOLOG] 3 ML PEN SC ×2 (07:00→08:42)
[2018-12-14] MEDS: COLLAGENASE 5 GM (UD JAR) TOP (08:55)
[2018-12-14] MEDS: DILTIAZEM (CD) 180 MG CAP PO (08:57)
[2018-12-14] MEDS: DOXAZOSIN 4 MG TAB PO (08:57)
[2018-12-14] MEDS: LOSARTAN 50 MG TAB PO (08:57)
[2018-12-14] MEDS: predniSONE 10 MG TAB PO (09:01)
== END 2018-12-14 11:32 | disposition home health service (06) | DRG 292 ==
LOC: E/R 00:12 → 6WM 02:02
DX: I11.0 Hypertensive heart disease with heart failure (principal); Z94.0 Kidney transplant status; I50.33 Acute on chronic diastolic (congestive) heart failure; N40.1 Benign prostatic hyperplasia with lower urinary tract symptoms; R33.8 Other retention of urine; E11.9 Type 2 diabetes mellitus without complications; Z91.19 Patient's noncompliance with other medical treatment and regimen
CPT/HCPCS: 36415; 71045; 80048; 80053; 80061; 82803; 82962; 83036; 83605; 83880; 84484; 85025; 93005; 94664; 99291-25